=== PATIENT | female | born 1980 | race Two or more races ===

== ENCOUNTER 2024-11-08 13:13 | Outpatient (CLI) | payer MEDICAID, SELFPAY | END 2024-11-08 13:14 | disposition home or self-care (01) | LOC: NFLDREF 13:15 | PROVIDERS: PCP Internal Medicine; Visit Provider Internal Medicine | DX: R51.9 Headache, unspecified (principal) | CPT/HCPCS: 80048 ==

== ENCOUNTER 2024-11-15 15:50 | Outpatient (CLI) | payer MEDICAID, SELFPAY ==
[2024-11-15 18:13] LABS: Bacterial Vaginosis* Negative (Negative); Candida glab/krus NOT DETECTED (No Detected)
[2024-11-15 18:44] LABS: Chlamydia DNA Amplified* NOT DETECTED (No Detected); GC DNA Amplified* NOT DETECTED (No Detected)
[2024-11-17 08:51] LABS: HPV Source Cervix
[2024-11-29 09:27] LABS: Pap Test Digital Imaging Done
== END 2024-11-15 15:51 | disposition home or self-care (01) ==
PROVIDERS: PCP Internal Medicine; Visit Provider Obstetrics & Gynecology
DX: N93.9 Abnormal uterine and vaginal bleeding, unspecified (principal); R14.0 Abdominal distension (gaseous); R30.0 Dysuria; N89.8 Other specified noninflammatory disorders of vagina; N39.0 Urinary tract infection, site not specified; R51.9 Headache, unspecified; Z11.51 Encounter for screening for human papillomavirus (HPV); Z12.4 Encounter for screening for malignant neoplasm of cervix
CPT/HCPCS: 80053; 80061; 81513; 84443; 87086; 87481; 87491; 87591; 87624; 87625; 87661; 88141; 88142; 88175

== ENCOUNTER 2024-11-22 11:52 | Outpatient (CLI) | payer MEDICAID, SELFPAY ==
--- NOTE | 2024-11-22 12:15 | CRLHL7_ITS ---
For Patients: As a result of the Century Cures Act, medical imaging exams and procedure reports are released immediately into your electronic medical record. You may view this report before your referring provider. If you have questions, please contact your health care provider. INDICATION: Abnormal uterine bleeding COMPARISON: 09/01/2021 TECHNIQUE: 2D rosales-scale and color Doppler images were acquired of the pelvis using a transabdominal and transvaginal approach. Transvaginal imaging performed to better visualize the endometrial stripe and ovaries. FINDINGS: Sonographic images demonstrate a normal size and smooth outer contour of the uterus. Uterus measures 9.5 cm in length by 1.1 cm in AP diameter by 5.2 cm in transverse dimension. The myometrium has a normal uniform echotexture. The endometrial lining appears normal and measures 10.5 mm in composite thickness. The right ovary measures 3.0 x 2.6 x 2.0 cm in size and the left ovary measures 3.5 x 2.4 x 1.6 cm. The ovaries demonstrate normal arterial and venous blood flow on color Doppler analysis. There are no suspicious fluid collections within the cul-de-sac. Simple circumscribed left ovarian cyst measures 2.2 cm. Nonvascular hypoechoic structure right ovary measures 6 x 5 x 5 millimeters, unchanged. IMPRESSION: Endometrial thickness 10.5 millimeters. No endometrial fluid. No uterine fibroid. 6 millimeter right ovarian dermoid, unchanged. Simple left ovarian cyst measures 2.2 cm. Dictated by Brayden Dennis MD @ 11/23/2024 7:05:54 AM (Electronically Signed)
== END 2024-11-22 11:53 | disposition home or self-care (01) ==
LOC: US 11:53
PROVIDERS: PCP Internal Medicine; Visit Provider Obstetrics & Gynecology
DX: N93.9 Abnormal uterine and vaginal bleeding, unspecified (principal); R93.89 Abnormal findings on diagnostic imaging of other specified body structures; D27.0 Benign neoplasm of right ovary
CPT/HCPCS: 76830; 76856; T1013

== ENCOUNTER 2024-12-03 13:56 | Outpatient (CLI) | payer MEDICAID, SELFPAY ==
--- NOTE | 2024-12-03 14:00 | CRLHL7_ITS ---
For Patients: As a result of the Century Cures Act, medical imaging exams and procedure reports are released immediately into your electronic medical record. You may view this report before your referring provider. If you have questions, please contact your health care provider. INDICATION: Head. Jaw pain. Pressure under eyes. TECHNIQUE: CT of the orbits/face without contrast. Multiplanar reformats are included. COMPARISON: None. FINDINGS: Orbits: Within normal limits. Facial soft tissues: Within normal limits. Imaged intracranial structures: Within normal limits. Paranasal sinuses and mastoid air cells: Mild polypoid mucosal thickening maxillary sinuses. Ethmoid air cells are clear. Mastoid air cells are clear. Osseous structures: Within normal limits. IMPRESSION: 1. No significant orbital/facial soft tissue abnormalities. 2. No significant osseous abnormalities. 3. Mild polypoid mucosal thickening maxillary sinuses. Please note that all CT scans at this facility use dose modulation, iterative reconstruction, and/or weight-based dosing when appropriate to reduce radiation dose to as low as reasonably achievable. Dictated by Orion Poe MD @ 12/04/2024 9:00:52 AM (Electronically Signed)
== END 2024-12-03 13:57 | disposition home or self-care (01) ==
LOC: CT 13:59
PROVIDERS: PCP Internal Medicine; Visit Provider Internal Medicine
DX: R68.84 Jaw pain (principal); J32.0 Chronic maxillary sinusitis
CPT/HCPCS: 70486; T1013

== ENCOUNTER 2024-12-10 10:29 | Outpatient (CLI) | payer MEDICAID, SELFPAY | END 2024-12-10 10:30 | disposition home or self-care (01) | LOC: NFLDREF 12-11 15:25 | PROVIDERS: PCP Internal Medicine; Referring Provider Internal Medicine; Visit Provider Obstetrics & Gynecology | DX: N39.0 Urinary tract infection, site not specified (principal) | CPT/HCPCS: 87086 ==

== ENCOUNTER 2024-12-13 09:36 | Outpatient (CLI) | payer MEDICAID, SELFPAY ==
--- NOTE | 2024-12-13 09:45 | CRLHL7_ITS ---
For Patients: As a result of the Cures Act, medical imaging exams and procedure reports are released immediately into your electronic medical record. You may view this report before your referring provider. If you have questions, please contact your health care provider. DIGITAL DIAGNOSTIC BILATERAL MAMMOGRAM USING TOMOSYNTHESIS AND COMPUTER-AIDED DETECTION LEFT BREAST ULTRASOUND CLINICAL HISTORY: LEFT breast lump. COMPARISON: 05/26/2021, 06/03/2021. TECHNIQUE: Digital BILATERAL mammogram in four projections with computer-aided detection. Tomosynthesis was used in this interpretation. Real-time ultrasound imaging of LEFT breast with imaging documentation. Scanning was performed by both the technologist and the radiologist. BREAST COMPOSITION: The breasts are extremely dense, which lowers the sensitivity of mammography. FINDINGS: 3D CC/MLO BILATERAL mammogram images submitted. A few scattered punctate calcifications are present bilaterally. No suspicious mass or architectural distortion. No adenopathy. Targeted LEFT breast ultrasound performed in the area of concern performed at 2 o`clock between 3 and 6 cm from the nipple. Normal dense fibroglandular tissue is present. A few scattered cysts are present which measure up to 7 millimeters. No solid masses. IMPRESSION: No suspicious findings. Benign fibrocystic changes. No evidence of malignancy. RECOMMENDATIONS: Routine screening mammography. A lay language report of this examination will be provided to the patient. BI-RADS Category 2: Benign Dictated by Brayden Dennis MD @ 12/13/2024 11:20:18 AM jj/Dictated by: Brayden Dennis MD @ 12/13/2024 11:20:00 AM (Electronically Signed)
--- NOTE | 2024-12-13 10:15 | CRLHL7_ITS ---
For Patients: As a result of the Cures Act, medical imaging exams and procedure reports are released immediately into your electronic medical record. You may view this report before your referring provider. If you have questions, please contact your health care provider. SEE DIGITAL DIAGNOSTIC BILATERAL MAMMOGRAM PERFORMED SAME DAY CRL:codi kincaid/Dictated by: Brayden Dennis MD @ 12/13/2024 11:20:00 AM (Electronically Signed)
== END 2024-12-13 09:37 | disposition home or self-care (01) ==
LOC: MAMMO 09:36
PROVIDERS: PCP Internal Medicine; Visit Provider Obstetrics & Gynecology
DX: N63.20 Unspecified lump in the left breast, unspecified quadrant (principal)
CPT/HCPCS: 76642; 77066; T1013; G0279